=== PATIENT | female | born 1960 | race Caucasian/White ===

== ENCOUNTER 2021-10-02 11:07 | Day surgery (SDC) | payer BC ==
[~2021-10-02] VITALS: Ht 172.7 cm; Wt 131.0 kg
[~2021-10-02 11:07] MED LIST: AMLO10 PO; ATOR10 PO; ATOR40TA PO; C COMPLEX1000 M1 PO; CHOL10002 PO; DEXL60CA3; DEXL60CA3 PO; FURO40 PO; LOSHYD PO; METF500 PO; MULTI VITAMIN1 EACH PO; POTASSIUM CITR15 ME1 PO; POTASSIUM GLUCO99 M1 PO; PROBIOTIC1 EAC1 PO; SPIR50 PO; TAMS.4ER PO; VITAMIN B125000 MC1 PO; VITAMIN D325 MC3 PO
[2021-10-02] MEDS ORDERED: LOSARTAN-HCTZ1 EACH PO (11:55)
== END 2021-10-02 14:08 | disposition home or self-care (01) ==
LOC: ORSCSDS 11:07
PROVIDERS: Internal Medicine Gastroenterology
PROC: 3E0H8KZ Introduction of Other Diagnostic Substance into Lower GI, Via Natural or Artificial Opening Endoscopic (ICD-10-PCS; principal; 2021-10-02 12:15)
PROC: 0DBN8ZX Excision of Sigmoid Colon, Via Natural or Artificial Opening Endoscopic, Diagnostic (ICD-10-PCS; principal; 2021-10-02 12:15)
PROC: 0DBK8ZX Excision of Ascending Colon, Via Natural or Artificial Opening Endoscopic, Diagnostic (ICD-10-PCS; principal; 2021-10-02 12:15)
DX: R19.5 Other fecal abnormalities (principal); D12.2 Benign neoplasm of ascending colon; K57.30 Diverticulosis of large intestine without perforation or abscess without bleeding; E11.9 Type 2 diabetes mellitus without complications; I10 Essential (primary) hypertension; K76.0 Fatty (change of) liver, not elsewhere classified; E66.01 Morbid (severe) obesity due to excess calories; Z68.41 Body mass index [BMI] 40.0-44.9, adult; Z79.84 Long term (current) use of oral hypoglycemic drugs; Z79.899 Other long term (current) drug therapy
CPT/HCPCS: 82947; 88305; J2704; J7120

== ENCOUNTER 2024-12-09 06:07 | Day surgery (SDC) | payer BC ==
[~2024-12-09] VITALS: Ht 172.7 cm; Wt 120.0 kg
[2024-12-09] VITALS (16 sets, daily range): BP systolic 110–1169; BP diastolic 65–122
[~2024-12-09 06:07] MED LIST changes: +LOSARTAN-HCTZ1 EACH PO
[2024-12-09] MEDS ORDERED: Acetaminophen 500 MG Tab PO SCH ×2 (06:20→08:00)
[2024-12-09] MEDS ORDERED: Lactated Ringer's 1,000 ML IV SCH ×2 (06:20→07:30)
[2024-12-09] MEDS ORDERED: Ropivacaine 0.5% HCl/Pf 123.125 MG,EPINEPHrine HCL 0.25 MG,Ketorolac Tromethamine 15 MG... INFIL SCH (06:20)
[2024-12-09] MEDS ORDERED: Chlorhexidine Mouth Care 15 ML UDC MT SCH (06:20)
[2024-12-09] MEDS ORDERED: Vancomycin HCL 1,000 MG in NS 250 ML IV SCH ×2 (06:20→18:00)
[2024-12-09] MEDS ORDERED: OxyCODONE HCL 10 MG TABCR PO SCH (06:20)
[2024-12-09] MEDS ORDERED: Tranexamic Acid 100 ML IV SCH (06:28)
[2024-12-09] MEDS ORDERED: CeFAZolin Sodium 3,000 MG in NS 100 ML IV SCH (06:30)
[2024-12-09] MEDS ORDERED: Magnesium Sulfate 500 MG / ML 2ML Vial ONE (06:59)
[2024-12-09] MEDS ORDERED: propofoL 50 ML IV ONE (06:59)
[2024-12-09] MEDS ORDERED: Lidocaine HCl 2% 20 ML MDV ONE (07:01)
[2024-12-09] MEDS ORDERED: Ondansetron HCl 2 MG / ML 2ML Vial ONE (07:01)
[2024-12-09] MEDS ORDERED: Metoclopramide HCl 5MG / ML 2ML Vial ONE (07:01)
[2024-12-09] MEDS ORDERED: HYDROmorphone HCl/Pf 1MG SYR IV PRN ×3 (07:05→07:25)
[2024-12-09] MEDS ORDERED: DiphenhydrAMINE HCL 25 MG Cap PO PRN (07:05)
[2024-12-09] MEDS ORDERED: Promethazine HCl 25 MG Tab PO PRN (07:10)
[2024-12-09] MEDS ORDERED: Bisacodyl 10 MG Supp PR PRN (07:10)
[2024-12-09] MEDS ORDERED: Midazolam HCl 1MG / ML 2ML Vial ONE (07:11)
[2024-12-09] MEDS ORDERED: Ondansetron HCl 2 MG / ML 2ML Vial IV PRN ×2 (07:15→07:25)
[2024-12-09] MEDS ORDERED: OxyCODONE HCL 5 MG TAB PO PRN ×2 (07:15)
[2024-12-09] MEDS ORDERED: Metoclopramide HCl 5MG / ML 2ML Vial IV PRN ×2 (07:15→07:25)
[2024-12-09] MEDS ORDERED: Magnesium Hydroxide Conc 10 ML UDC PO PRN (07:15)
[2024-12-09] MEDS ORDERED: FentaNYL Citrate 50 MCG/ML 2 ML Injection IV PRN ×2 (07:25)
[2024-12-09] MEDS ORDERED: Labetalol HCL 5 MG/ML 4ML Injection (Single Dose) IV PRN (07:25)
[2024-12-09] MEDS ORDERED: Insulin Regular 100 UNIT/ML 10ML Vial SC SCH (07:30)
[2024-12-09] MEDS ORDERED: Phenylephrine HCl 100 MCG/ML-NS 10MLSYR (1MG/10ML) ONE (07:49)
[2024-12-09] MEDS ORDERED: MetFORMIN HCl 500 mg PO SCH (08:00)
[2024-12-09] MEDS ORDERED: propofoL 40 ML IV ONE (08:13)
[2024-12-09] MEDS ORDERED: ePHEDrine Sulfate 50 MG/ML 1ML Injection ONE (08:18)
[2024-12-09] MEDS ORDERED: HYDROmorphone HCl/Pf 1MG SYR ONE ×3 (08:22→09:20)
[2024-12-09] MEDS ORDERED: FentaNYL Citrate 50 MCG/ML 5 ML Injection ONE (08:31)
[2024-12-09] MEDS ORDERED: propofoL 20 ML IV ONE ×2 (08:50→09:24)
[2024-12-09] MEDS ORDERED: Aspirin 81 MG Chew PO SCH (09:00)
[2024-12-09] MEDS ORDERED: Trimethoprim/Sulfamethoxazole DS Tab PO SCH (09:00)
[2024-12-09] MEDS ORDERED: Losartan/HCTZ 50-12.5 TAB PO SCH (09:00)
[2024-12-09] MEDS ORDERED: Ascorbic Acid 500 MG Tab PO SCH (09:00)
[2024-12-09] MEDS ORDERED: Atorvastatin 10 MG Tab PO SCH (09:00)
[2024-12-09] MEDS ORDERED: Docusate Sodium 100 MG Cap PO SCH (09:00)
[2024-12-09] MEDS ORDERED: FentaNYL Citrate 50 MCG/ML 2 ML Injection ONE ×2 (10:10→10:19)
--- NOTE | 2024-12-09 11:20 | NUR ---
POST-OP PATIENT TO ROOM 218 @1110. VSS. ON 2L NC, SLIGHTLY DROWSY CBG 187. DENIES PAIN AT THIS TIME. WIGGLES ALL TOES. DENIES N/T. TELFA, TEGADERM, AND SERGE TO R KNEE C/D/I. PAS AND TEDS IN PLACE. SIPS OF CL AT THIS TIME. CALL LIGHT IN REACH.
[2024-12-09] MEDS ORDERED: Ketorolac Tromethamine 15mg Vial IV SCH (12:00)
[2024-12-09] MEDS ORDERED: CeFAZolin Sodium 2,000 MG in NS 100 ML IV SCH (16:00)
[2024-12-09] MEDS ORDERED: Potassium Citrate 5 MEQ TABCR PO SCH (21:00)
--- NOTE | 2024-12-10 05:45 | NUR ---
PT RESTED WELL T/O NOC. SCHEDULED MEDS GIVEN ORDERED AND PRN NEEDED. A&OX4. USES CALL LIGHT APPROP. PT SHOULD GO HOME TODAY. WILL WORK WITH PT. NEW IV PLACED LAST NIGHT. SHARRONG C/D/I WITH TELFA STRIP AND TEGADERM. GOOD CIRC CHECKS. WILL GIVE REPORT TO RN TAKING PT.
[2024-12-10 06:11] LABS: BASOPHILS ABSOLUTE AUTO 0.01 K/mm3 (0.00-0.23); BASOPHILS PERCENT AUTO 0 % (0-2); EOSINOPHILS ABSOLUTE AUTO 0.11 K/mm3 (0.00-0.68); EOSINOPHILS PERCENT AUTO 2 % (0-6); Hematocrit 32.5 % (33.0-51.0); Hemoglobin 10.4 g/dL (11.5-16.0); IMMATURE GRAN ABSOLUTE AUTO 0.01 K/mm3 (0.00-0.10); IMMATURE GRAN PERCENT AUTO 0 % (0-1); LYMPHOCYTES ABSOLUTE AUTO 1.42 K/mm3 (0.84-5.20); LYMPHOCYTES PERCENT AUTO 22 % (21-46); MONOCYTES ABSOLUTE AUTO 0.65 K/mm3 (0.16-1.47); MONOCYTES PERCENT AUTO 10 % (4-13); Mean Corpuscular HGB 28.5 pg (26.0-34.0); Mean Corpuscular Volume 89 fL (80-100); Mean Platelet Volume 11.5 fL (9.1-12.4); NEUTROPHILS ABSOLUTE AUTO 4.13 K/mm3 (1.96-9.15); NEUTROPHILS PERCENT AUTO 65 % (41-73); Platelet Count 169 K/mm3 (150-400); RDW Coefficient Variation 12.7 % (11.7-14.2); RDW Standard Deviation 41.4 fL (35.1-46.3); Red Blood Cell Count 3.65 M/mm3 (3.80-5.20); White Blood Cell Count 6.33 K/mm3 (4.00-11.30)
[2024-12-10 06:44] LABS: Bun/Creatinine Ratio 19.9 (12.0-20.0); Calcium, Blood 8.6 mg/dL (8.5-10.1); Creatinine, Blood 0.9 mg/dL (0.40-1.00); Magnesium, Blood 2.1 mg/dL (1.6-2.4); Potassium, Blood 3.6 mmol/L (3.5-5.5)
[2024-12-10 07:31] VITALS: BP 155/92
[2024-12-10 07:32] VITALS: BP 157/80
[2024-12-10] MEDS ORDERED: HYDROcodone 5-APAP 325 TAB PO PRN (09:10)
== END 2024-12-10 10:35 | disposition home or self-care (01) ==
LOC: ORD 06:07 → ORSCMMR 06:07 → ORD 06:09 → SURS 11:08 → ORSCMMR 11:08 → ORD 12-10 10:35 → SURS 12-10 10:35
PROVIDERS: Orthopaedic Surgery
PROC: 0SRC0JA Replacement of Right Knee Joint with Synthetic Substitute, Uncemented, Open Approach (ICD-10-PCS; principal; 2024-12-09 07:30)
DX: M17.11 Unilateral primary osteoarthritis, right knee (principal); E11.9 Type 2 diabetes mellitus without complications; E66.01 Morbid (severe) obesity due to excess calories; Z68.41 Body mass index [BMI] 40.0-44.9, adult; Z79.84 Long term (current) use of oral hypoglycemic drugs; Z79.899 Other long term (current) drug therapy
CPT/HCPCS: 36415; 73560-RT; 80048; 82947; 83735; 85025; 94760; 97116; 97162; 97530; A9270; C1713; C1776; J0171; J0690; J0735; J1171; J1815; J1885; J2250; J2371; J2405; J2704; J2765; J2795; J3010; J3370; J3475; J7050; J7120